=== PATIENT | female | born 1990 | race Caucasian/White ===

== ENCOUNTER 2019-04-15 21:26 | Emergency (ER) | payer MEDICAID ==
[~2019-04-15] VITALS: Ht 157.5 cm; Wt 47.3 kg
--- NOTE | 2019-04-15 22:30 | NUR ---
PT HAD A NEAR SYNCOPAL EPISODE WHILE LYING ON BED. PT WAS PALE AND STATES SHE HAD TUNNEL VISION. NO LOC, DID NOT HIT HEAD. DYSON PA AT BEDSIDE, VITALS WNL, AND BG 72. PT GIVEN APPLE JUICE. STATES THEY WERE HIKING TODAY AND ONLY ATE CRACKERS TODAY. WILL CONTINUE TO MONITOR
[2019-04-15] MEDS ORDERED: morphine 4 MG/ML inj SYRINge IV ONE (23:15)
[2019-04-15] MEDS ORDERED: ondansetron/PF 4mg/2ml inj IV ONE (23:15)
[2019-04-15 23:19] VITALS: BP 125/75
[2019-04-16] MEDS ORDERED: HYDR-4383 PO (00:19)
[2019-04-16] MEDS ORDERED: HYDROcodone/acetaminophen 10/325mg tab PO ONE (00:25)
== END 2019-04-16 00:46 | disposition home or self-care (01) ==
LOC: ER 21:28
DX: S72.102A Unspecified trochanteric fracture of left femur, initial encounter for closed fracture (principal); Z79.899 Other long term (current) drug therapy; W18.39XA Other fall on same level, initial encounter; Y93.89 Activity, other specified; Y92.89 Other specified places as the place of occurrence of the external cause; Y99.8 Other external cause status
CPT/HCPCS: 29105; 73080; 73090; 82948; 99283; J2270; J2405; 99284

== ENCOUNTER 2019-04-28 11:29 | Day surgery (SDC) | payer MEDICAID ==
[2019-04-24 15:09] LABS: BASOPHILS % (AUTO) 0.4 % (0-1); EOSINOPHILS # (AUTO) 0.1 X10'3 (0-0.9); LYMPHOCYTES # (AUTO) 1.4 X10'3 (1.1-4.8); LYMPHOCYTES % (AUTO) 24.2 % (21-51); MEAN CORPUSCULAR HEMOGLOBIN 31.9 PG (27.0-31.0); MEAN CORPUSCULAR HGB CONC 33.9 g/dL (33.0-36.5); MEAN CORPUSCULAR VOLUME 94.2 FL (78-98); MEAN PLATELET VOLUME 8.2 FL (7.4-10.4); MONOCYTES # (AUTO) 0.7 X10'3 (0-0.9); MONOCYTES % (AUTO) 11.9 % (2-12); NEUTROPHILS # (AUTO) 3.7 X10'3 (1.8-7.7); NEUTROPHILS % (AUTO) 62.5 % (42-75); PRE OP HEMATOCRIT 40.4 % (35.0-45.0); PRE OP HEMOGLOBIN 13.7 g/dL (12.0-16.0); PRE OP PLATELET COUNT 209 X10'3 (140-440); RED BLOOD COUNT 4.28 X10'6 (4.20-5.60); RED CELL DISTRIBUTION WIDTH 12.9 % (11.5-14.5)
[2019-04-24 15:17] LABS: HCG SERUM QL NEGATIVE
[2019-04-28] VITALS (8 sets, daily range): BP systolic 103–125; BP diastolic 49–72
[~2019-04-28] VITALS: Ht 157.5 cm; Wt 56.7 kg
[~2019-04-28 11:29] MED LIST: HYDR-4383 PO; IBUP100O19 PO; MARIJUANA
[2019-04-28] MEDS ORDERED: LIDOcaine 1% (10mg/ml) 2ml vial ONE (12:08)
[2019-04-28] MEDS ORDERED: ringers solution, lacted 1,000 ML IV SCH ×2 (12:45→14:47)
[2019-04-28] MEDS ORDERED: famotidine 20mg tablet PO ONE (12:45)
[2019-04-28] MEDS ORDERED: cefazolin/dext.iso 2gm/100 ML IV ONE (12:45)
[2019-04-28] MEDS ORDERED: LIDOcaine/PRILOcaine 5gm cream TP ONE (12:55)
[2019-04-28] MEDS ORDERED: MIDAZolam 5mg/ml 2ml vial IV ONE (13:05)
[2019-04-28] MEDS ORDERED: sevoflurane 250ml liquid IH ONE (13:45)
[2019-04-28] MEDS ORDERED: fentaNYL/PF 50MCG/1 ML 2ML syringe ONE (13:50)
[2019-04-28] MEDS ORDERED: midazolam 2 mg/2 ml injection ONE ×2 (13:51→14:21)
[2019-04-28] MEDS ORDERED: morphine 4 MG/ML inj SYRINge IV PRN ×2 (14:50)
[2019-04-28] MEDS ORDERED: meperidine/PF 25mg/ml syringe IV PRN ×3 (14:50)
[2019-04-28] MEDS ORDERED: ondansetron/PF 4mg/2ml inj IV PRN (14:50)
[2019-04-28] MEDS ORDERED: proCHLORperazine 10 MG/2 ml inj IV PRN (14:50)
[2019-04-28] MEDS ORDERED: ondansetron/PF 4mg/2ml inj ONE (15:26)
[2019-04-28] MEDS ORDERED: LIDOcaine 1%/PF 5ML 10 MG/ML VIAL ONE (15:26)
[2019-04-28] MEDS ORDERED: dexamethasone sod phosphate 4mg/ml inj. ONE (15:26)
[2019-04-28] MEDS ORDERED: propofol inj 20 ML IV ONE (15:26)
[2019-04-28] MEDS ORDERED: ROPIVAcaine 0.5% (5mg/ml) 30ml vial ONE (15:26)
--- NOTE | 2019-04-28 15:50 | NUR ---
Received from OR via [facility] , accompanied by Anesthesiologist DR RITCHIE and report given by Anesthesiolgist. DRSG TO LEFT ARM CDI. SKIN COLOR TO DIGITS ON RIGHT HAND WNL, CSM TO LEFT HAND WNL. PT AROUSABLE , DENIES PAIN AND NAUSEA.
--- NOTE | 2019-04-28 18:00 | NUR ---
PT WAS DISCHARGED HOME SAFELY VIA W/C. PT TOLERATING JUICE AND STATES READINESS FOR DC TO HOME. DENIES PAIN AND NAUSEA. DRSG TO LEFT ARM CDI. CLYDE WRAP ALSO CDI. SHOULDER SLING PRESENT. PT AND SPOUSE BOTH STATE UNDERSTANDING REGARDING ALL DC INSTRUCTIONS. ALL BELONGINGS W/ PT UPON DC TO HOME INCLUDING GLASSES.
== END 2019-04-28 18:00 | disposition home or self-care (01) ==
LOC: PAS 11:29
PROVIDERS: ATTEND Orthopaedic Surgery
DX: S42.452A Displaced fracture of lateral condyle of left humerus, initial encounter for closed fracture (principal); X58.XXXA Exposure to other specified factors, initial encounter; Y93.89 Activity, other specified; Y92.89 Other specified places as the place of occurrence of the external cause; Y99.8 Other external cause status; Z72.89 Other problems related to lifestyle; Z79.899 Other long term (current) drug therapy
CPT/HCPCS: 24579; 36415; 73070; 76000; 82948; 84703; 85025; A6222; C1713; J1100; J2001; J2250; J2405; J2704; J3010; J7120; A4565; A4618; A6449; A7000; J2795